=== PATIENT | male | born 1980 | race Caucasian/White ===

== ENCOUNTER 2024-03-23 01:41 | Inpatient (IN) | payer OTHER ==
[~2024-03-23] VITALS: Ht 185.4 cm; Wt 73.0 kg
[2024-03-23 04:06] LABS: ANION GAP 6 mmol/L (8-16); CALCIUM, TOTAL 8.5 mg/dL (8.8-10.5); CARBON DIOXIDE 28 mmol/L (22-29); CHLORIDE 104 mmol/L (98-107); GLOMERULAR FILTR. RATE CALC > 60 mL/min (>60); GLUCOSE,RANDOM 99 mg/dL (70-110); POTASSIUM 3.7 mmol/L (3.5-5.1); SODIUM SERUM 138 mmol/L (136-145); UREA NITROGEN, BLOOD 12 mg/dL (7-18)
[2024-03-23 04:10] LABS: BASOPHILS % (AUTO) 0.8 % (0.0-2.0); EOSINOPHILS % (AUTO) 1.1 % (1.0-6.0); HEMATOCRIT 38.5 % (41-53); LYMPHOCYTES # (AUTO) 1.9 K/uL (1.0-4.8); LYMPHOCYTES % (AUTO) 25.4 % (22.0-44.0); MEAN CORPUSCULAR HEMOGLOBIN 29.9 pg (26.0-34.0); MEAN CORPUSCULAR HGB CONC 33.7 G/dL (31.0-37.0); MEAN CORPUSCULAR VOLUME 89 fL (80-100); MONOCYTES # (AUTO) 0.5 K/uL (0.1-1.0); MONOCYTES % (AUTO) 6.4 % (2.0-9.0); NEUTROPHILS # (AUTO) 4.8 K/uL (1.8-7.7); NEUTROPHILS % (AUTO) 66.3 % (40.0-70.0); PLATELET COUNT (AUTO) 257 K/uL (150-450); RED BLOOD CELL COUNT(AUTO) 4.34 MIL/uL (4.50-5.90); RED CELL DISTRIBUTION WIDTH 13.3 % (11.5-14.5); WHITE BLOOD COUNT (AUTO) 7.3 K/uL (4.5-11.0)
[2024-03-23 04:25] LABS: AMMONIA 15 umol/L (11-32); TROPONIN I-HIGH SENSITIVITY 5 ng/L (<76)
[2024-03-23] MEDS: LevETIRAcetam 1,000 MG in DEXTROSE 5%-WATER 100 ML IV ONE (04:31)
[2024-03-23] MEDS: SODIUM CHLORIDE 0.9% 500 ML IV ONE (04:32)
[2024-03-23 05:09] LABS: APPEARANCE,URINE CLEAR (CLEAR); BILIRUBIN,URINE NEGATIVE (NEGATIVE); COLOR,URINE COLORLESS (YELLOW); GLUCOSE, URINE (UA) NEGATIVE (NEGATIVE); KETONES,URINE NEGATIVE (NEGATIVE); LEUKOCYTE ESTERASE ,URINE NEGATIVE (NEGATIVE); NITRATE,URINE NEGATIVE (NEGATIVE); OCCULT BLOOD,URINE NEGATIVE (NEGATIVE); PH,URINE 6.5 (5.0-8.0); PROTEIN,URINE NEGATIVE (NEGATIVE); SPECIFIC GRAVITIY, URINE 1.009 (1.003-1.030); UROBILINOGEN,URINE <=1.0 mg/dL (<=1.0)
[2024-03-23 05:15] LABS: RBC,URINE None Seen /HPF (0-2); WBC,URINE 0-2 /HPF (0-5)
[2024-03-23 05:16] LABS: BACTERIA,URINE None Seen /HPF (None Seen)
[2024-03-23] MEDS: HEPARIN SODIUM,PORCINE 5,000 UNITS/ML VIAL SQ SCH (08:00)
[2024-03-23 09:41] VITALS: BP 115/58; PULSE 68; RESP 18; TEMP 97.6; O2SAT 97
[2024-03-23] MEDS ORDERED: GADOTERATE MEGLUMINE 10 MMOL/20 ML VIAL IVP ONE (09:43)
[2024-03-23] MEDS: DOCUSATE SODIUM 100 MG CAPSULE PO SCH (10:54)
[2024-03-23] MEDS: LevETIRAcetam 500 MG TABLET PO SCH (10:54)
[2024-03-23] MEDS: ACETAMINOPHEN 325 MG TABLET PO PRN (10:56)
[2024-03-23 12:00] VITALS: BP 94/51; PULSE 65; RESP 18; TEMP 97.9; O2SAT 98
[2024-03-23 15:53] VITALS: BP 108/65; PULSE 69; RESP 18; TEMP 98.1; O2SAT 98
[2024-03-23 21:38] VITALS: BP 99/62; PULSE 60; RESP 17; TEMP 98; O2SAT 98
[2024-03-23 23:43] VITALS: BP 93/59; PULSE 55; RESP 16; TEMP 98.1; O2SAT 98
[2024-03-24 03:16] VITALS: BP 91/62; PULSE 68; RESP 17; TEMP 97.8; O2SAT 98
[2024-03-24 06:48] LABS: BASOPHILS % (AUTO) 1.2 % (0.0-2.0); EOSINOPHILS % (AUTO) 2.1 % (1.0-6.0); HEMATOCRIT 41.6 % (41-53); HEMOGLOBIN 14.4 g/dL (13.5-17.5); LYMPHOCYTES # (AUTO) 1.9 K/uL (1.0-4.8); LYMPHOCYTES % (AUTO) 38.6 % (22.0-44.0); MEAN CORPUSCULAR HEMOGLOBIN 30.8 pg (26.0-34.0); MEAN CORPUSCULAR HGB CONC 34.6 G/dL (31.0-37.0); MEAN CORPUSCULAR VOLUME 89 fL (80-100); MONOCYTES # (AUTO) 0.4 K/uL (0.1-1.0); MONOCYTES % (AUTO) 7.9 % (2.0-9.0); NEUTROPHILS # (AUTO) 2.5 K/uL (1.8-7.7); NEUTROPHILS % (AUTO) 50.2 % (40.0-70.0); PLATELET COUNT (AUTO) 257 K/uL (150-450); RED BLOOD CELL COUNT(AUTO) 4.66 MIL/uL (4.50-5.90); RED CELL DISTRIBUTION WIDTH 13.1 % (11.5-14.5)
[2024-03-24 06:59] LABS: ANION GAP 8 mmol/L (8-16); CALCIUM, TOTAL 8.8 mg/dL (8.8-10.5); CARBON DIOXIDE 29 mmol/L (22-29); CHLORIDE 102 mmol/L (98-107); CREATININE 0.88 mg/dL (0.60-1.30); GLOMERULAR FILTR. RATE CALC > 60 mL/min (>60); GLUCOSE,RANDOM 95 mg/dL (70-110); SODIUM SERUM 138 mmol/L (136-145); UREA NITROGEN, BLOOD 11 mg/dL (7-18)
[2024-03-24 08:47] VITALS: BP 100/65; PULSE 52; RESP 18; TEMP 98; O2SAT 100
[2024-03-24 12:12] VITALS: BP 96/55; PULSE 65; RESP 19; TEMP 98.1; O2SAT 97
[2024-03-24 16:02] VITALS: BP 98/56; PULSE 68; RESP 18; TEMP 98; O2SAT 98
[2024-03-24 20:08] VITALS: BP 100/59; PULSE 67; RESP 18; TEMP 98.1; O2SAT 99
[2024-03-24 23:55] VITALS: BP 97/58; PULSE 56; RESP 16; TEMP 98; O2SAT 97
[2024-03-25 04:55] VITALS: BP 91/58; PULSE 52; RESP 16; TEMP 97.1; O2SAT 98
[2024-03-25 09:07] VITALS: BP 98/62; PULSE 55; RESP 18; TEMP 98.1; O2SAT 100
[2024-03-25 12:27] VITALS: BP 97/65; PULSE 67; RESP 18; TEMP 98; O2SAT 100
[2024-03-25 16:26] VITALS: BP 103/67; PULSE 70; RESP 19; TEMP 98.1; O2SAT 100
[2024-03-25 20:03] VITALS: BP 100/63; PULSE 59; RESP 18; TEMP 97.2; O2SAT 99
== END 2024-03-25 21:00 | DRG 101 ==
LOC: EMS 01:41 → EDH 04:48 → 5S 10:10
PROVIDERS: ADMIT Internal Medicine; ATTEND Internal Medicine
DX: G40.909 Epilepsy, unspecified, not intractable, without status epilepticus (principal); J44.9 Chronic obstructive pulmonary disease, unspecified; Z87.891 Personal history of nicotine dependence; Z95.5 Presence of coronary angioplasty implant and graft
CPT/HCPCS: 70450; 70551; 72125; 80048; 81001; 82140; 83735; 84484; 85025; 99285; J0712; J1644; J7050; J7060